=== PATIENT | male | born 1960 ===

== ENCOUNTER 2025-01-12 08:00 | Day surgery (SDC) | payer OTHER ==
[2025-01-06 13:34] VITALS: BP 149/81
[~2025-01-12] VITALS: Ht 180.3 cm; Wt 90.7 kg
[~2025-01-12 08:00] MED LIST: lantus
[2025-01-12] MEDS ORDERED: CEFAZOLIN SODIUM 1,000 MG VIAL ONE (09:34)
[2025-01-12] MEDS ORDERED: LIDOCAINE HCL 1%/EPINEPHRINE 20ML VIAL IJ ONE (11:46)
[2025-01-12] MEDS ORDERED: BUPIVACAINE HCL/MPF 0.5% 30ML VIAL ONE (11:46)
[2025-01-12] MEDS ORDERED: KETOROLAC TROMETHAMINE 30 MG VIAL ONE (11:52)
[2025-01-12] MEDS ORDERED: ENALAPRILAT DIHYDRATE 1.25 MG/ML VIAL IV ONE ×2 (15:24→15:30)
== END 2025-01-12 16:50 | disposition home or self-care (01) ==
LOC: CIR.AMB 08:00
PROVIDERS: ATTEND Orthopaedic Surgery
DX: S46.212A Strain of muscle, fascia and tendon of other parts of biceps, left arm, initial encounter (principal)